=== PATIENT | male | born 1970 | race Caucasian/White ===

== ENCOUNTER 2023-08-03 11:27 | Emergency (ER) | payer OTHER, MEDICAID, SELFPAY ==
[2023-08-03 11:37] VITALS: BP 125/68; PULSE 72; RESP 18; TEMP 36.7; O2SAT 99; BMI 32.9
--- NOTE | 2023-08-03 11:43 | ECG_ITS ---
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 Measurements Intervals [place] Rate: 78 P: 1 [place]: 154 QRS: -11 QRSD: 98 T: 25 QT: 412 QTc: 469 Interpretive Statements SINUS RHYTHM Compared to ECG 08/28/2015 06:14:06 Sinus bradycardia no longer present T-wave abnormality no longer present Electronically Signed On 08-03-2023 13:44:20 CDT by Samir Scott M.D. [email or web address] [email or web address] [id number]
--- NOTE | 2023-08-03 12:15 | XR_ITS ---
WS: [id number] Exam: XR chest 1V portable [id number] Date/Time of Exam: 08/03/2023 12:15 PM Reason For Exam: dyspnea/cough Comparison 08/27/2015. The lungs are clear and fully inflated. Normal cardiomediastinal silhouette. Bony structures are inta ct. Old RIGHT clavicle fracture. XR/XR chest 1V portable [id number] IMPRESSION: 1. No acute cardiopulmonary finding.
--- NOTE | 2023-08-03 12:18 | W.ED.GENADLT ---
HPI - General Adult General: Chief complaint: Shortness of Breath/Dyspnea Stated complaint: sent over for SOB, cardiac issue Time Seen by Provider: 08/03/23 11:54 Source: patient Mode of arrival: ambulatory History of Present Illness: 53-year-old male presents to the emergency room complaining of shortness of breath. He has a known history of cirrhosis. He was at a primary care doctor today they did an EKG were concerned about potential EKG changes and he was directed to the emergency room. He says he has no chest pain or palpitations he stopped most of his medications about a month ago he tells me he left the [facility] week ago where he had been staying after prolonged hospital stay related to his liver and kidney failure. He had been on hospice. He denies fever sweats or chills no abdominal pain or bloating he has noticed significant swelling in his legs. Onset (ago): day(s) Associated symptoms: Deny chest pain, dyspnea, nausea, rash, palpitations or vomiting Review of Systems Const: Denies: fever(s) or chills Card: Denies: chest pain, palpitations, dyspnea on exertion or orthopnea Resp: Denies: dyspnea GI: Denies: abdominal pain, nausea or vomiting : Denies: dysuria, urinary frequency or urinary urgency Musc: Denies: neck pain or back pain Skin/Breast: Denies: rash PFSH ED PFSH: Medical History (Updated 08/09/23 @ 06:57 by Lacho Combs DO) Gouty arthritis Alcoholic cirrhosis of liver Social History (Updated 08/09/23 @ 06:57 by Lacho Combs DO) Alcohol intake: former Physical Exam Const: GENERAL APPEARANCE: cooperative and comfortable ORIENTATION/CONSCIOUSNESS: Yes awake, Yes oriented to person, Yes oriented to place and Yes oriented to time HENMT: COMMON NORMALS: normocephalic, atraumatic and hearing grossly normal bilaterally HEAD & SCALP: normocephalic and atraumatic Resp: COMMON NORMALS: normal respiratory effort, No retractions, No use of accessory muscles and clear to auscultation bilaterally AUSCULTATION: clear to auscultation bilaterally Cardio: COMMON NORMALS: regular rate, regular rhythm and No murmurs present (Cardio) RATE: regular rate RHYTHM: regular rhythm GI: COMMON NORMALS: Soft to palpation and No hepatosplenomegaly present AUSCULTATION: Yes normoactive bowel sounds PALPATION: Yes Soft to palpation, No Tenderness to palpation present (GI), No Guarding due to palpation present (GI) and Yes No hepatosplenomegaly present Extremity: COMMON NORMALS: normal to inspection, capillary refill normal and no calf tenderness GENERAL: Yes edema (Bilateral) OTHER: Left knee slightly warm to touch no erythema or induration of the skin pain with passive range of motion at the knee no deformity Neuro: SENSORIUM/ORIENTATION: Yes oriented to person, Yes oriented to place and Yes oriented to time Skin: COMMON NORMALS: no rashes or lesions noted GENERAL SKIN EXAM: no rashes or lesions noted Course Vital Signs: Vital signs: Vital Signs Temperature 98.1 F 08/03/23 11:37 Pulse Rate 79 08/03/23 14:31 Respiratory Rate 18 08/03/23 14:31 Blood Pressure 135/83 08/03/23 14:31 Pulse Oximetry 98 08/03/23 13:30 Oxygen Delivery Me thod Room Air 08/03/23 13:30 [facility] - General Adult Medical Decision Making Labs and imaging reviewed. No evidence of DVT or PE EKG troponins do not show any acute changes he is asymptomatic at this time. No acute coronary syndrome at this time based on symptoms labs or EKG. Does have some edema of his extremities and he would benefit from restarting on spironolactone. Suspect he may have some gouty arthritis as well we will put him on a Medrol Dosepak. He has swelling in his lower extremities suspect this is in part to his alcoholic liver cirrhosis. Will start him on spironolactone for this. Finally his ammonia level is elevated at 110 but he is essentially asymptomatic but he has no specific confusion is. Will provide a good history and interaction discuss his lab results as well. Will restart him on his lactulose he should follow-up with his primary care doctor within the next week to reevaluate. Medical Records I reviewed the patient's medical records. Lab Data I reviewed the patient's lab results. 08/03/23 12:23 08/03/23 12:23 Radiology Impressions Chest X-Ray 08/03/23 12:15 IMPRESSION: 1. No acute cardiopulmonary finding. Knee X-Ray 08/03/23 14:50 IMPRESSION: 1. Negative LEFT knee. Laboratory Results WBC 3.74 10^3/uL (3.29-11.43) 08/03/23 12:23 RBC 3.30 10^6/uL (3.85-5.65) L 08/03/23 12:23 Hgb 10.70 g/dL (11.27-16.99) L 08/03/23 12:23 Hct 32.5 % (37-53) L 08/03/23 12:23 MCV 98.5 fl (82-101) 08/03/23 12:23 MCH 32.4 pg (27-33) 08/03/23 12:23 MCHC 32.9 g/dL (30-55) 08/03/23 12:23 RDW 16.4 % (12.1-15.1) H 08/03/23 12:23 Plt Count 69 10^3/cmm (157-399) L 08/03/23 12:23 MPV 9.8 fL (7.4-10.4) 08/03/23 12:23 Neut % (Auto) 36.1 % 08/03/23 12:23 Lymph % (Auto) 36.9 % 08/03/23 12:23 [place] % (Auto) 19.3 % 08/03/23 12:23 Eos % (Auto) 5.6 % 08/03/23 12:23 Baso % (Auto) 2.1 % 08/03/23 12:23 Neut # (Auto) 1.35 10^3/uL (1.8-7.7) L 08/03/23 12:23 Lymph # (Auto) 1.4 10^3/uL (0.8-4.8) 08/03/23 12:23 [place] # (Auto) 0.7 10^3/uL (0.2-0.9) 08/03/23 12:23 Eos # (Auto) 0.2 10^3/uL (0.0-0.8) 08/03/23 12:23 Baso # (Auto) 0.1 10^3/uL (0.0-0.1) 08/03/23 12:23 Nucleated RBC % (auto) 0 % 08/03/23 12:23 Nucleated RBCs # 0.0 /100WBC 08/03/23 12:23 PT 17.60 SECONDS (12.1-14.9) H 08/03/23 12:23 INR 1.40 (0.8-1.2) H 08/03/23 12:23 APTT 35.5 SECONDS (23.9-36.7) 08/03/23 12:23 Sodium 140 mmol/L (136-145) 08/03/23 12:23 Potassium 4.1 mmol/L (3.5-5.1) 08/03/23 12:23 Chloride 107 mmol/L (98-107) 08/03/23 12:23 Carbon Dioxide 23 mmol/L (22-29) 08/03/23 12:23 Anion Gap 14.1 (5-19) 08/03/23 12:23 BUN 11 mg/dL (6-20) 08/03/23 12:23 Creatinine 0.4 mg/dL (0.7-1.2) L 08/03/23 12:23 GFR Calculation 225.0 mL/min (90-130) H 08/03/23 12:23 Glucose 89 mg/dL (65-115) 08/03/23 12:23 Calculated Osmolality 289 mOsm/kg (285-295) 08/03/23 12:23 Calcium 8.7 mg/dL (8.5-10.5) 08/03/23 12:23 Total Bilirubin 2.8 mg/dL (0.15-1.2) H 08/03/23 12:23 AST 88 U/L (0-40) H 08/03/23 12:23 ALT 19 U/L (0-41) 08/03/23 12:23 Alkaline Phosphatase 239 U/L (40-130) H 08/03/23 12:23 Ammonia 104 umol/L (16-60) H 08/03/23 12:23 Troponin T Baseline 13 ng/L (0-15) 08/03/23 12:23 Troponin T 120 Minute 12.23 ng/L (0-15) 08/03/23 14:14 Delta Troponin T -0.77 ABS# (0-10) L 08/03/23 14:14 NT-Pro-B Natriuret Pep 82 pg/mL (0-125) 08/03/23 12:23 Total Protein 5.3 g/dL (6.6-8.7) L 08/03/23 12:23 Albumin 3.2 g/dL (3.5-5.2) L 08/03/23 12:23 Globulin 2.1 g/dL (1.3-4.6) 08/03/23 12:23 Urine Color Yellow (Yellow) 08/03/23 13:10 Urine Appearance Clear (CLEAR) 08/03/23 13:10 Urine pH 6 (5-7) 08/03/23 13:10 Ur Specific [place] 1.015 (1.005-1.030) 08/03/23 13:10 Urine Protein Neg (Negative) 08/03/23 13:10 Urine Glucose (UA) Norm (Normal) 08/03/23 13:10 Urine Ketones Negative (Negative) 08/03/23 13:10 Urine Blood Neg (Negative) 08/03/23 13:10 Urine Nitrate Negative (Negative) 08/03/23 13:10 Urine Bilirubin Neg (Negative) 08/03/23 13:10 Urine Urobilinogen Norm mg/dL (Negative) 08/03/23 13:10 Ur Leukocyte Esterase 4+ (Negative) H 08/03/23 13:10 All radiology interpretation(s) finalized by discharge Discharge Plan Discharge Clinical Impression: Alcoholic cirrhosis of liver, Gouty arthritis, Edema of extremity Prescriptions: New spironolactone 25 mg tablet 25 mg PO DAILY Qty: 30 0RF Medrol ([place]) 4 mg tablets,dose pack See Rx Instructions .ROUTE .COMPLEX Qty: 21 0RF Rx Instructions: orally per package directions lactulose 10 gram/15 mL (15 mL) solution 45 ml PO BID Qty: 1500 0RF Discharge Orders: Discharge ED (Routine); Ordered 08/03/23 Ordered By: Lacho Combs Referrals: Mike Larkin MD [Family Provider] - Omar Lan FNP [Primary Care Provider] - Discharge Diet: Usual diet Discharge Activity: Increase activity as tolerated Patient Instructions: Opioid Safety, Pain Management Activity Restrictions/Additional Instructions: Thank you for choosing [facility] for your healthcare needs today. It is very important that you follow up as instructed or that you return to the Emergency Department should you have concerns or if your condition changes or worsens in any way. Laboratory tests today show an elevated ammonia level recommend you resume your lactulose you should take 30 g twice a day for 5 days then 30 g once daily. You are also complaining of swelling in your legs recommend you start spironolactone 25 mg once daily. Finally you complaining of left knee pain x-ray did not show any acute fractures based on your symptoms suspect he may have some mild gouty arthritis recommend you start a steroid taper beginning tomorrow. You were given initial dose of steroids in the emergency room. Follow-up with your doctor within the next week. Your cardiac enzymes and EKGs did not show any acute changes. Coding Level of Care Code ED Assistant Elementary Teacher for Dm Blair
[2023-08-03 12:31] LABS: Basophils # 0.1 10^3/uL (0.0-0.1); Basophils % 2.1 %; Eosinophils # 0.2 10^3/uL (0.0-0.8); Eosinophils % 5.6 %; Hematocrit 32.5 % (37-53); Lymphocytes # 1.4 10^3/uL (0.8-4.8); Lymphocytes % 36.9 %; Mean Corpuscular HGB Conc 32.9 g/dL (30-55); Mean Corpuscular Hemoglobin 32.4 pg (27-33); Mean Corpuscular Volume 98.5 fl (82-101); Mean Platelet Volume 9.8 fL (7.4-10.4); Monocytes # 0.7 10^3/uL (0.2-0.9); Monocytes % 19.3 %; Neutrophils # 1.35 10^3/uL (1.8-7.7); Neutrophils % 36.1 %; Nucleated Red Blood Cells % 0 %; Platelet Count 69 10^3/cmm (157-399); Red Cell Distribution Width 16.4 % (12.1-15.1); White Blood Count 3.74 10^3/uL (3.29-11.43)
[2023-08-03 12:46] LABS: Partial Thromboplastin Time 35.5 SECONDS (23.9-36.7)
[2023-08-03 12:52] LABS: Troponin(5th) Baseline 13 ng/L (0-15)
[2023-08-03 12:55] LABS: Ammonia 104 umol/L (16-60)
[2023-08-03 13:01] LABS: Alanine Aminotransferase 19 U/L (0-41); Albumin Level 3.2 g/dL (3.5-5.2); Alkaline Phosphatase 239 U/L (40-130); Aspartate Amino Transferase 88 U/L (0-40); Blood Urea Nitrogen 11 mg/dL (6-20); Calcium 8.7 mg/dL (8.5-10.5); Carbon Dioxide 23 mmol/L (22-29); Chloride 107 mmol/L (98-107); Globulin 2.1 g/dL (1.3-4.6); Glucose 89 mg/dL (65-115); NT Pro B Type Natriuretic Pept 82 pg/mL (0-125); Osmolality Calculated 289 mOsm/kg (285-295); Sodium 140 mmol/L (136-145); Total Bilirubin 2.8 mg/dL (0.15-1.2); Total Protein 5.3 g/dL (6.6-8.7)
[2023-08-03 13:05] LABS: Creatinine Clr Calc Pharmacy 227.4482
[2023-08-03 13:06] LABS: Anion Gap 14.1 (5-19); Potassium 4.1 mmol/L (3.5-5.1)
[2023-08-03 13:20] LABS: Add Urine Microscopic? NO; Charge for UA Resulting for Rev
[2023-08-03 13:24] LABS: Bilirubin Urine Neg (Negative); Blood Urine Neg (Negative); Glucose Urine UA Norm (Normal); Ketones Urine Negative (Negative); Leukocyte Esterase Urine 4+ (Negative); Nitrate Urine Negative (Negative); Protein Urine Neg (Negative); Specific Gravity, Urine 1.015 (1.005-1.030); Urine Appearance Clear (CLEAR); Urine Color Yellow (Yellow); Urobilinogen Urine Norm (Negative); pH Urine 6 (5-7)
[2023-08-03 13:30] VITALS: BP 138/86; PULSE 71; RESP 17; O2SAT 98
--- NOTE | 2023-08-03 13:56 | ECG_ITS ---
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 Measurements Intervals [place] Rate: 73 P: 70 GA: 156 QRS: 80 QRSD: 97 T: 16 QT: 428 QTc: 472 Interpretive Statements SINUS RHYTHM Compared to ECG 08/03/2023 11:43:58 No significant changes Electronically Signed On 08-03-2023 14:03:00 CDT by Samir Scott M.D. [email or web address] [email or web address] [email or web address] [email or web address]store/[id number]
[2023-08-03 14:31] VITALS: BP 135/83; PULSE 79; RESP 18
[2023-08-03 14:41] LABS: Troponin 5 2HR 12.23 ng/L (0-15)
[2023-08-03 14:43] LABS: Troponin 5 2HR Delta -0.77 ABS# (0-10)
--- NOTE | 2023-08-03 14:50 | XR_ITS ---
WS: [id number] Exam: XR knee LT 3V* [id number] Date/Time of Exam: 08/03/2023 2:50 PM Reason For Exam: pain No fracture or dislocation. The joint compartments are preserved. No significant joint effusion. Norm al soft tissues. XR/XR knee LT 3V* [id number] IMPRESSION: 1. Negative LEFT knee.
== END 2023-08-03 15:53 | disposition home or self-care (01) ==
PROVIDERS: Emergency Provider Family Medicine; Family Provider Family Medicine; PCP Nurse Practitioner Family
DX: K70.30 Alcoholic cirrhosis of liver without ascites (principal); M10.9 Gout, unspecified; R60.0 Localized edema
CPT/HCPCS: 36415; 71045; 73562; 80053; 81003; 82140; 83880; 84484; 85025; 85610; 85730; 93005; 99285

== ENCOUNTER → 2023-11-12 12:32 | Outpatient (BNVA) | payer OTHER, MEDICAID, SELFPAY | PROVIDERS: Family Provider Family Medicine; PCP Nurse Practitioner Family; Referring Provider Family Medicine; Visit Provider Internal Medicine | DX: R07.9 Chest pain, unspecified (principal) | CPT/HCPCS: 36415; 93005 ==